=== PATIENT | male | born 1980 | race Caucasian/White ===

== ENCOUNTER 2017-12-24 10:14 | Emergency (ER) | payer BC ==
[~2017-12-24] VITALS: Ht 170.2 cm; Wt 108.5 kg
[2017-12-24 10:21] VITALS: TEMP 36.7; Ht 170.2 cm; Wt 108.5 kg
[2017-12-24 11:35] LABS: BASO % 0.4 %; BASO ABS # 0.03 K/uL (0-0.2); EOS % 1.3 %; HEMATOCRIT 44.3 % (42-52); HEMOGLOBIN 15.2 g/dL (14.0-18.0); IG# 0.03 K/uL (0.00-0.02); LYMPH ABS # 1.89 K/uL (1.2-3.4); MEAN CELL VOLUME 89.1 fL (80-100); MEAN CORPUSCULAR HEMOGLOBIN 30.6 pg (25-34); MEAN CORPUSCULAR HGB CONC 34.3 g/dl (32-36); MONO % 7.9 %; NEUT ABS # 4.91 K/uL (1.4-6.5); PLATELET COUNT 252 K/uL (130-400); RED CELL DISTRIBUTION WIDTH CV 13.3 % (11.5-14.5); WHITE BLOOD COUNT 7.56 K/uL (4.8-10.8)
[2017-12-24 11:46] LABS: ALBUMIN 4.2 gm/dl (3.4-5.0); ALT/SGPT 49 U/L (12-78); BLOOD UREA NITROGEN 20 mg/dl (7-18); CALCIUM 9.2 mg/dl (8.5-10.1); CARBON DIOXIDE 27 mmol/L (21-32); CREATININE 1.24 mg/dl (0.60-1.40); GLUCOSE 111 mg/dl (70-99); POTASSIUM 3.8 mmol/L (3.5-5.1); SODIUM 136 mmol/L (136-145)
[2017-12-24 11:51] LABS: ALKALINE PHOSPHATASE 76 U/L (45-117); AST/SGOT 20 U/L (15-37); CKMB 1.4 ng/ml (0.5-3.6); TOTAL PROTEIN 7.8 gm/dl (6.4-8.2)
[2017-12-24 11:53] LABS: PTT PATIENT 24.5 SECONDS (21.0-31.0)
--- NOTE | 2017-12-24 11:53 | DIAGNOSTIC IMAGING REPORT ---
CHEST 2 VIEWS ROUTINE CLINICAL HISTORY: LEFT CHEST PAIN SOB dyspnea COMPARISON STUDY: No previous studies for comparison. FINDINGS: The bones soft tissues and hemidiaphragms are normal. The cardiomediastinal silhouette is normal. The lungs are clear. The pulmonary vasculature is normal. IMPRESSION: Negative chest. The above report was generated using voice recognition software. It may contain grammatical, syntax or spelling errors. Electronically signed by: Sterling Pan M.D. 12/24/2017 11:52 AM Dictated Date/Time: 12/24/2017 11:52 AM
--- NOTE | 2017-12-24 13:24 | EMERGENCY ROOM VISIT NOTE ---
History First contact with patient: 10:27 Chief Complaint: CHEST PAIN Stated Complaint: CHEST PAIN History of Present Illness Patient is a generally healthy 37-year-old white male who presents the emergency department for evaluation of an episode of chest pain and shortness of breath that occurred while at work roughly 1 hour ago. Patient reports that yesterday, he began to experience some moderate shortness of breath, it did not impede his ability to work, and did not subside until he went home in the evening. He slept without difficulty, and woke up feeling well. He had a normal breakfast, then went to work. He states that he was on a break, roughly 1 hour prior to arrival in the emergency department. He was leaning up against a wall, seated with his knees bent when he had the sudden onset of a sharp left upper chest pain. It lasted him only about 10-15 seconds, then subsided on its own. He rated the pain a 6/10 at its worse. He noted some associated shortness of breath and lightheadedness. He noted some heaviness in his left arms and generalized weakness. He states that his symptoms made him "begin to panic", he was holding his chest, and taken to the office by coworkers and given to Liza. The ambulance was then summoned. He gives given 4 baby aspirin en route. He states that this feels very similar to his prior anxiety attacks, except for the chest pain which concerned him. At the present time, he again only feels a little short of breath and lightheaded. He has noted some left posterior thigh pain, and had some cramping and charley horses in both of his legs over the weekend. He denies any leg injury. He denies any DVT or PE risk factors, including family history, smoking or any prolonged immobilization. He denies any pleuritic chest pain. No numbness, tingling or weakness into the extremities. He denies any abdominal pain, nausea or vomiting. Patient admits that he does not see the doctor regularly, but does not have any diagnosed medical issues. He reports that his blood pressure has been "borderline" but he has not been diagnosed with hypertension. He is not taking any prescription medications. He reports that he "self medicates" with beer, drinks roughly 4 beers per night, and can go through a 30 pack in a week. Review of Systems Review of systems as per HPI. All other systems reviewed were negative. 10 systems reviewed. Past Medical/Surgical History Medical Problems: (1) Anxiety State Nos Electronic medical records are reviewed and summarized as above/below. See Problem List. Social History Smoking Status: Former Smoker Smokeless Tobacco Use: Yes Alcohol Use: heavy Marital Status: Housing Status: lives with family Occupation Status: employed Current/Historical Medications No Active Prescriptions or Reported Meds Physical Exam Vital Signs Date Time Temp Pulse Resp B/P (MAP) Pulse Ox O2 Delivery O2 Flow Rate FiO2 12/24/17 13:27 74 16 147/77 98 Room Air 12/24/17 11:37 85 16 139/97 98 Room Air 12/24/17 10:28 Room Air 12/24/17 10:24 105 12/24/17 10:21 36.7 105 22 167/107 100 Room Air Physical Exam CONSTITUTIONAL: Patient is a pleasant, well-appearing 37-year-old white male who is awake and alert and in no acute distress. EYES: Pupils equal, round, reactive to light and accommodation. EOMs intact without nystagmus. Sclera are anicteric. ENT: Tympanic membranes intact, with normal landmarks. External canals are clear. Oral and nasopharynx are clear. Mucous membranes are moist, no lesions , tongue and gums appear normal. NECK: No bruits auscultated. Supple without lymphadenopathy. No thyromegaly. No meningeal signs. Full active range of motion without discomfort. CARDIOVASCULAR: Slightly tachycardic rate and rhythm, with normal S1 and S2, no murmur or gallop or rub is heard. No carotid bruits auscultated. No JVD. Peripheral pulses easy to palpable. RESPIRATORY: Breath sounds equal and clear to auscultation without wheezes, rales, or rhonchi heard. Full and equal chest expansion without accessory muscle use or retractions. GI: Bowel sounds are present. Abdomen is soft, nontender, nondistended. No organomegaly. No pulsatile masses. No guarding or rebound. MUSCULOSKELETAL: Full range of motion of extremities x 4 with good strength. No cyanosis, edema, joint tenderness or swelling. No deformity. Calves are soft and nontender. Negative Homans sign. INTEGUMENTARY: No lesions or rash, normal skin turgor. NEUROLOGICAL: Alert, oriented, and cooperative. Cranial nerves, sensation and strength grossly intact. Pupils round, equal, and react to light, EOMs are full. LYMPH: No lymphadenopathy. Medical Decision & Procedures ER Provider Diagnostic Interpretation: CHEST 2 VIEWS ROUTINE CLINICAL HISTORY: LEFT CHEST PAIN SOB dyspnea COMPARISON STUDY: No previous studies for comparison. FINDINGS: The bones soft tissues and hemidiaphragms are normal. The cardiomediastinal silhouette is normal. The lungs are clear. The pulmonary vasculature is normal. IMPRESSION: Negative chest. Laboratory Results 12/24/17 10:25 Red Blood Count 4.97, Mean Corpuscular Volume 89.1, Mean Corpuscular Hemoglobin 30.6, Mean Corpuscular Hemoglobin Concent 34.3, Mean Platelet Volume 10.0, Neutrophils (%) (Auto) 65.0, Lymphocytes (%) (Auto) 25.0, Monocytes (%) (Auto) 7.9, Eosinophils (%) (Auto) 1.3, Basophils (%) (Auto) 0.4, Neutrophils # (Auto) 4.91, Lymphocytes # (Auto) 1.89, Monocytes # (Auto) 0.60, Eosinophils # (Auto) 0.10, Basophils # (Auto) 0.03 12/24/17 10:25 Test 12/24/17 10:25 12/24/17 10:56 12/24/17 11:25 White Blood Count 7.56 K/uL (4.8-10.8) Red Blood Count 4.97 M/uL (4.7-6.1) Hemoglobin 15.2 g/dL (14.0-18.0) Hematocrit 44.3 % (42-52) Mean Corpuscular Volume 89.1 fL (80-100) Mean Corpuscular Hemoglobin 30.6 pg (25-34) Mean Corpuscular Hemoglobin Concent 34.3 g/dl (32-36) Platelet Count 252 K/uL (130-400) Mean Platelet Volume 10.0 fL (7.4-10.4) Neutrophils (%) (Auto) 65.0 % Lymphocytes (%) (Auto) 25.0 % Monocytes (%) (Auto) 7.9 % Eosinophils (%) (Auto) 1.3 % Basophils (%) (Auto) 0.4 % Neutrophils # (Auto) 4.91 K/uL (1.4-6.5) Lymphocytes # (Auto) 1.89 K/uL (1.2-3.4) Monocytes # (Auto) 0.60 K/uL (0.11-0.59) Eosinophils # (Auto) 0.10 K/uL (0-0.5) Basophils # (Auto) 0.03 K/uL (0-0.2) RDW Standard Deviation 43.0 fL (36.4-46.3) RDW Coefficient of Variation 13.3 % (11.5-14.5) Immature Granulocyte % (Auto) 0.4 % Immature Granulocyte # (Auto) 0.03 K/uL (0.00-0.02) Prothrombin Time 10.0 SECONDS (9.0-12.0) Prothromb Time International Ratio 1.0 (0.9-1.1) Activated Partial Thromboplast Time 24.5 SECONDS (21.0-31.0) Partial Thromboplastin Ratio 0.9 Anion Gap 7.0 mmol/L (3-11) Est Creatinine Clear Calc Drug Dose 94.0 ml/min Estimated GFR () 84.3 Estimated GFR (Non- 72.8 BUN/Creatinine Ratio 15.7 (10-20) Calcium Level 9.2 mg/dl (8.5-10.1) Total Bilirubin 0.4 mg/dl (0.2-1) Aspartate Amino Transf (AST/SGOT) 20 U/L (15-37) Alanine Aminotransferase (ALT/SGPT) 49 U/L (12-78) Alkaline Phosphatase 76 U/L (45-117) Total Creatine Kinase 225 U/L (39-308) Creatine Kinase MB 1.4 ng/ml (0.5-3.6) Troponin I < 0.015 ng/ml (0-0.045) Total Protein 7.8 gm/dl (6.4-8.2) Albumin 4.2 gm/dl (3.4-5.0) Globulin 3.6 gm/dl (2.5-4.0) Albumin/Globulin Ratio 1.2 (0.9-2) Creatine Kinase MB Ratio (0-3.0) Bedside D-Dimer 216 ng/mlFEU (0-450) ECG Per My Interpretation Indication: chest pain, SOB/dyspnea Rate (beats per minute): 106 Rhythm: sinus tachycardia Findings: no acute ischemic change, no ectopy Comparison ECG Date: no prior available ED Course Patient was seen and evaluated as above. His old records are reviewed. He presents the emergency department for evaluation of a very brief episode of left -sided chest pain today, with associated shortness of breath times greater than one day. IV lock was initiated and laboratory studies were collected. EKG was performed it was as noted above. He is essentially completely asymptomatic at the time of my examination. He had been medicated with aspirin 324 mg chewable en route in ambulance. CBC with differential, coags, cardiac enzymes, CMP and [id number] d-dimer were drawn. Patient was observed on a ekg monitor tech, and initially had been noted to be tachycardic, this improved while in the emergency department. Chest x-ray was obtained and was unremarkable. Laboratory studies were unremarkable, no evidence for leukocytosis, anemia or significant electrolyte imbalance. Renal function is normal. Transaminases are within normal limits. Cardiac enzymes are negative 1, [id number] d- dimer was performed and was negative, given this and lack of PE risk factors, further workup for PE was not pursued. Patient was reassessed, he was reassured and made aware of the results of his ED workup. Differential diagnosis includes acute myocardial infarction, acute coronary syndrome, myocarditis, pericarditis, pulmonary embolism, pneumonia, pneumothorax, COPD/asthma exacerbation, musculoskeletal, anxiety, costochondritis, among others. The patient was encouraged to follow-up with his primary care provider for further care and management. Blood pressure was borderline elevated while here in the emergency department, and could represent hypertension versus white coat syndrome and therefore patient was advised to recheck following this. He was encouraged to return to the emergency department at any point if his symptoms return or worsen. He was discharged home with family in good condition. Medical Decision See ED Course. Medication Reconcilliation Current Medication List: was personally reviewed by me Blood Pressure Screening Patient's blood pressure: Elevated blood pressure Blood pressure disposition: Referred to PCP Impression Primary Impression: Non-cardiac chest pain Additional Impression: Shortness of breath Departure Information Prescriptions No Active Prescriptions or Reported Meds Referrals Trent Neville M.D. (PCP) Patient Instructions My [facility] Additional Instructions Ibuprofen(Motrin, Advil) may be used for fever or pain. Use 600mg every six hours as needed. Take with food. Avoid using more than 2400mg in a 24 hour period. Do not use 2400mg per day for more than three consecutive days without physician direction. Prolonged inappropriate use can lead to stomach upset or ulcers. (AND/OR) Acetaminophen(Tylenol) may be used for fever or pain. Use 1000mg every six hours as needed. Avoid using more than 3000mg in a 24 hour period. Rest and drink plenty of fluids as tolerated. Continue current medications. Avoid strenuous activities and anything that worsens your pain. Resume normal activities once your symptoms resolve. Return to the ER immediately for worsening or persistent chest pain, abdominal pain, vomiting, fevers, chest pains, difficulty breathing, worsening of your condition, or as needed. Follow up with your primary physician in 2-3 days for a recheck of your current condition. Problem Qualifiers
[2017-12-24 13:27] VITALS: BP 147/77; PULSE 74; O2SAT 98
== END 2017-12-24 13:44 | disposition home or self-care (01) ==
LOC: EDBD 10:14 → C.EDC 10:15
DX: R07.89 Other chest pain (principal); R06.02 Shortness of breath; F41.9 Anxiety disorder, unspecified; F10.10 Alcohol abuse, uncomplicated; Z87.891 Personal history of nicotine dependence